=== PATIENT | female | born 1940 | race Caucasian/White ===

== ENCOUNTER → 2017-05-12 | Outpatient (CLI) | payer OTHER ==
--- NOTE | 2017-05-12 11:15 | RADRPT ---
EXAM DATE/TIME: 05/12/2017 07:52 [place] COMPARISON: No previous studies available for comparison. EXTERNAL COMPARISON : [facility], MRI Brain w/wo, March 31, 2017 INDICATIONS : Increasing weakness on left side. MEDICAL HISTORY : None. SURGICAL HISTORY : Appendectomy. Tonsillectomy. hernia, subdural hematoma ENCOUNTER: Subsequent ACUITY: 2 months PAIN SCORE: 0/10 LOCATION: cranial TECHNIQUE: Brain spectroscopy. FINDINGS: The area of abnormal signal in the right peritrigonal white matter tracts identified on the patient's prior MRI examination which did not demonstrate any significant abnormal enhancement demonstrates re versed choline to creatine ratio with reduction in an JIMENA and high choline. CONCLUSION: Right peritrigonal lesion is still indeterminate and could be a low-grade neoplasm such as low-grade glioma, however leukoencephalopathic causes are still in the differential diagnosis. Raj Olivia MD on May 12, 2017 at 11:07 Board Certified Radiologist. This report was verified electronically.
== END ==
LOC: HRAD 07:07
PROVIDERS: ATTEND Internal Medicine
DX: M62.81 Muscle weakness (generalized) (principal)
CPT/HCPCS: 76390